=== PATIENT | male | born 1985 | race Caucasian/White ===

== ENCOUNTER 2022-10-29 08:07 | Outpatient (CLI) | payer BC, SELFPAY ==
--- NOTE | 2022-11-24 19:42 | WPDHOMESLEEP ---
Sleep Study - Home Unattended Date of Study: 10/29/22 Ordering Provider: Alton Cheatham PA-C Interpreting Provider: Luda Zarate, DO Home Sleep Study Type: Watch PAT Height: 1.88 m Weight: 135.171 kg Body Mass Index: 38.2 Neck Circumference (inches): 17.5 [place]: 4 Reason for Sleep Study Loud snoring, witnessed apneas Sleep History The patient is a 37 year old male with hypertension that had a sleep study ordered by his primary care for evaluation of sleep apnea. The patient is an medical record clerk to by profession. He occasionally awakens from sleep short of breath. He occasionally awakens at night with heartburn, belching or cough. He frequently snores and is frequently loud enough that others complain. He occasionally has trouble sleeping when he has a cold. He rarely wakes up gasping for air throughout the night. He occasionally has breathing problems at night observed by himself or others. He denies sweating excessively at night. He denies having heart palpitations or irregular heartbeats during the night. He rarely falls asleep during the day but never while driving. He denies sleep paralysis, cataplexy and hypnagogic / hypnopompic hallucinations. He denies having trouble at school or work due to sleepiness. He denies feeling afraid of going to sleep. He rarely has nightmares. He rarely remembers his dreams. He rarely has thoughts racing through his mind. He denies feeling sad or depressed. He rarely has anxiety. He denies having muscular tension. He rarely notices parts of his body jerk. He denies kicking during the night. He denies having crawling and aching feelings in his legs and denies having leg pain during the night. He denies grinding his teeth during sleep and denies awakening with morning jaw pain. He denies being bothered by pain during the day and denies being awakened by pain during the night. He rarely wakes up feeling stiff in the morning. He rarely wakes up with sore or achy muscles. He rarely wakes up with pain in the neck, spine or other joints. He goes to bed between 10-11 p.m. on weekdays and at 11:00 p.m. on the weekends. It takes him 10-20 minutes to fall asleep. He wakes up once throughout the night at most to urinate or check on 1 of his kids. He is able fall back asleep within 10 minutes. He wakes up at 6:00 a.m. on weekdays and between 6-7 a.m. on the weekends. He typically gets 6-8 hours of sleep per night. He will stay in bed for 5-10 minutes after waking up in the morning. He currently lives with his and 2 children. He does not consume any caffeinated beverages within 2 hours of bedtime. He does not engage in physical exercise before bedtime. He will read watch television before falling asleep. He denies taking naps in the afternoon or the evening. He consumes 3 caffeinated beverages per day. He consumes 1 alcoholic beverage per week. He denies tobacco and recreational drug use. [facility] Social History Social History Smoking status: Never smoker Alcohol intake: current Substance use: unknown Lack of Transportation: No Lack of Food: Never True Current Housing: I Have Housing Concerned About Future Housing: No Difficulty Paying Gas/Electric Bills: No Difficulty Paying for Meds: No Currently Unemployed: No Education: Master's Degree or Higher Difficulty w/ Childcare or Family Care: No Medications Home Medications Medication Instructions Recorded Confirmed Type losartan 50 mg tablet 50 mg PO DAILY #90 tabs 09/18/22 09/18/22 Rx Sleep Procedure The sleep study was completed using [employer] Video[employer] a technically adequate device with seven channels: peripheral arterial tone, actigraphy, body position, snore, respiratory movement, pulse oximetry, sleep staging, and heart rate. Prior to using the device, the patient received verbal and written instructions for its application and was provid
[2022-11-24 19:50] VITALS: BMI 38.2
== END 2022-11-02 11:12 | disposition home or self-care (01) ==
PROVIDERS: PCP Physician Assistant; Visit Provider Physician Assistant
DX: G47.10 Hypersomnia, unspecified (principal); G47.33 Obstructive sleep apnea (adult) (pediatric)
CPT/HCPCS: 95800

== ENCOUNTER 2022-12-21 09:39 | Outpatient (CLI) | payer BC, SELFPAY ==
--- NOTE | 2023-01-07 12:39 | WPDSLEEPSTUD ---
Sleep Study Date of Study: 12/21/22 Ordering Provider: Alton Cheatham PA-C Interpreting Physician: Nataly De Leon MD Sleep Study Type: CPAP Titration Height: 1.88 m Weight: 133.81 kg Body Mass Index: 37.8 Neck Circumference (inches): 17.5 [place]: 4 Reason for Sleep Study 10/29/22 ? Home Sleep Test ? Overall AHI 44.4 with desaturation down to 67%. He spent 68 minutes of the study, 16.9% of total sleep time with an oxygen saturation less than or equal to 88%. Sleep History Clarence Bone is a 37-year-old male with hypertension who had a home sleep test 10/29/22 showing severe obstructive sleep apnea with marked hypoxemia. He returns for a CPAP titration. The patient is an manager secondary, does not have daytime difficulties due to excessive daytime sleepiness. He occasionally awakens from sleep short of breath.? He occasionally awakens at night with heartburn, belching or cough.? He frequently snores, and it is frequently loud enough that others complain.? He occasionally has trouble sleeping when he has a cold.? He rarely wakes up gasping for air throughout the night.? He occasionally has breathing problems at night observed by others.? He denies sweating excessively at night.? He denies having heart palpitations or irregular heartbeats during the night.? He rarely falls asleep during the day but never while driving.? He denies Feeling paralyzed on falling asleep or on waking, he denies loss of muscle tone with strong emotion, and he denies having vivid dreamlike scenes upon awakening or falling asleep. He denies feeling afraid of going to sleep.? He rarely has nightmares.? He rarely remembers his dreams.? He rarely has thoughts racing through his mind.? He denies feeling sad or depressed.? He rarely has anxiety.? He denies having muscular tension.? He rarely notices parts of his body jerk.? He denies kicking during the night.? He denies having crawling and aching feelings in his legs and denies having leg pain during the night.? He denies grinding his teeth during sleep and denies awakening with morning jaw pain.? He denies being bothered by pain during the day and denies being awakened by pain during the night.? He rarely wakes up feeling stiff in the morning.? He rarely wakes up with sore or achy muscles.? He rarely wakes up with pain in the neck, spine or other joints.? He goes to bed between 10-11 p.m. on weekdays and at 11:00 p.m. on the weekends.? It takes him 10-20 minutes to fall asleep.? He wakes up once throughout the night at most to urinate or check on 1 of his kids.? He is able fall back asleep within 10 minutes.? He wakes up at 6:00 a.m. on weekdays and between 6-7 a.m. on the weekends.? He typically gets 6-8 hours of sleep per night.? He will stay in bed for 5-10 minutes after waking up in the morning.? He currently lives with his and 2 children.? He does not consume any caffeinated beverages within 2 hours of bedtime.? He does not engage in physical exercise before bedtime.? He will read watch television before falling asleep.? He denies taking naps in the afternoon or the evening.? He consumes 3 caffeinated beverages per day.? He consumes 1 alcoholic beverage per week.? He denies tobacco and recreational drug use. [facility] Past Medical History Medical History (Updated 01/07/23 @ 13:05 by Nataly De Leon MD) Hypertension EUFEMIA (obstructive sleep apnea) Social History Social History Smoking status: Never smoker Alcohol intake: current Substance use: unknown Lack of Transportation: No Lack of Food: Never True Current Housing: I Have Housing Concerned About Future Housing: No Difficulty Paying Gas/Electric Bills: No Difficulty Paying for Meds: No Currently Unemployed: No Education: Master's Degree or Higher Difficulty w/ Childcare or Family Care: No Medications Home Medications Medication Instructions Recorded Confirmed Type losartan 50
[2023-01-07 13:12] VITALS: BMI 37.8
== END 2022-12-22 06:58 | disposition home or self-care (01) ==
LOC: ANHCSM 09:40
PROVIDERS: PCP Physician Assistant; Visit Provider Physician Assistant
DX: G47.33 Obstructive sleep apnea (adult) (pediatric) (principal); I10 Essential (primary) hypertension
CPT/HCPCS: 95811